=== PATIENT | male | born 1940 | race Caucasian/White ===

== ENCOUNTER 2018-08-01 17:25 | Inpatient (IN) | payer MEDICARE ==
[~2018-08-01] VITALS: Ht 182.9 cm; Wt 98.2 kg
[~2018-08-01 17:25] MED LIST changes: -BROM3DRO OU; -CARV25TA PO; -FLUT1AER IH; -HYDR-3420 PO; -HYDR-4154 PO; -LOSA100T20 PO; -METF500S7 PO; -MONT10TA24 PO; -POTA-79 PO
[2018-08-01 18:00] VITALS: BP 188/93
[2018-08-01] MEDS ORDERED: POTA-79 PO (18:18)
[2018-08-01] MEDS ORDERED: HYDR-3420 PO (18:18)
[2018-08-01] MEDS ORDERED: HYDR-4154 PO (18:18)
[2018-08-01] MEDS ORDERED: FLUT1AER IH (18:18)
[2018-08-01] MEDS ORDERED: LOSA100T20 PO (18:18)
[2018-08-01] MEDS ORDERED: BROM3DRO OU (18:18)
[2018-08-01] MEDS ORDERED: METF500S7 PO (18:18)
[2018-08-01] MEDS ORDERED: MONT10TA24 PO (18:18)
[2018-08-01] MEDS ORDERED: CARV25TA PO (18:18)
[2018-08-01 18:30] LABS: HEMATOCRIT 42.1 % (42-54); MEAN CORPUSCULAR HEMOGLOBIN 27.8 pg (27.0-33.0); MEAN CORPUSCULAR HGB CONC 31.8 g/dL (32.0-36.0); MEAN CORPUSCULAR VOLUME 87.5 fL (79-99); PLATELET COUNT (AUTO) 240 K/uL (130-400); RED BLOOD CELL COUNT(AUTO) 4.82 MIL/uL (4.50-6.20); RED CELL DISTRIBUTION WIDTH 17.5 % (11.0-15.5); WHITE BLOOD COUNT (AUTO) 9.6 K/uL (4.8-10.8)
[2018-08-01 18:45] LABS: BAND NEUTROPHILS % (MANUAL) 4 % (0-2); EOSINOPHILS % (MANUAL) 1 % (1-6); LYMPHOCYTES % (MANUAL) 4 % (22-44); MAN.DIFF COMMENT-IMPRESSION MANUAL DIFFERENTIAL; MONOCYTES % (MANUAL) 3 % (2-9); REACTIVE LYMPHOCYTES 5 % (0-0); SEGMENTED NEUTROPHILS % 83 % (40-70)
[2018-08-01] MEDS ORDERED: LIDOCAINE HCL-MPF 1% 2ML VIAL IVP PRN (18:45)
[2018-08-01] MEDS ORDERED: POTASSIUM CHLORIDE 10% ELIXIR 20 MEQ/15 ML UDCUP PO PRN (18:45)
[2018-08-01] MEDS ORDERED: POTASSIUM CHLORIDE 20MEQ/100ML 100 ML IV PRN (18:45)
[2018-08-01] MEDS ORDERED: ZOLPIDEM TARTRATE 5 MG TAB PO PRN (18:45)
[2018-08-01] MEDS ORDERED: MAGNESIUM HYDROXIDE 30 ML/UDCUP PO PRN (18:45)
[2018-08-01] MEDS ORDERED: ACETAMINOPHEN 325 MG TAB PO PRN (18:45)
[2018-08-01 18:49] LABS: ABG BASE EXCESS 5.3 mmol/L (-2.0-3.0); ABG HCO3 29.5 mmol/L (21.0-28.0); ABG OXYGEN SATURATION 93.7 % (95.0-99.0); ABG PCO2 42 mmHg (35-48)
[2018-08-01 18:58] LABS: B-TYPE NATRIURETIC PEPTIDE 412 pg/mL (0-100)
[2018-08-01 19:02] LABS: CARBON DIOXIDE 31 mmol/L (21-32); CHLORIDE 108 mmol/L (101-111); CREATINE KINASE, TOTAL 106 U/L (21-232); CREATININE 1.9 mg/dL (0.5-1.5); GLOMERULAR FILTR. RATE CALC 37 mL/min (>60); GLUCOSE,RANDOM 101 mg/dL (70-105); MYOGLOBIN 203 ng/mL (10-92); POTASSIUM 4.3 mmol/L (3.5-5.1); SODIUM SERUM 144 mmol/L (136-145); TROPONIN I < 0.04 ng/mL (0.00-0.06); UREA NITROGEN, BLOOD 24 mg/dL (7-18)
[2018-08-01 19:14] VITALS: BP 183/89
[2018-08-01] MEDS: INSULIN HUMULIN R 100 UNIT/ML 3ML SQ SCH (21:00)
[2018-08-01] MEDS: FUROSEMIDE 10 MG/ML 4ML VIAL IV SCH (21:02)
[2018-08-01 21:38] LABS: BILIRUBIN,URINE Negative (NEGATIVE); COLOR,URINE Yellow (YELLOW); GLUCOSE, URINE (UA) Negative (NEGATIVE); KETONES,URINE Negative (NEGATIVE); LEUKOCYTE ESTERASE ,URINE Negative (NEGATIVE); NITRATE,URINE Negative (NEGATIVE); OCCULT BLOOD,URINE Negative (NEGATIVE); PROTEIN,URINE 300 (NEGATIVE)
[2018-08-01 21:41] LABS: APPEARANCE,URINE CLEAR (CLEAR)
[2018-08-01 21:44] LABS: BACTERIA,URINE Rare /HPF (None Seen); RBC,URINE 0-1 /HPF (0-1); SQUAMOUS EPITHELIAL CELL,UR Rare /HPF (0-2); WBC,URINE 0-1 /HPF (0-1)
[2018-08-01 23:00] VITALS: BP 154/64
[2018-08-01] MEDS: IPRATROPIUM 0.5 MG/2.5 ML INH IH SCH (23:49)
[2018-08-02 01:08] LABS: CREATINE KINASE, TOTAL 99 U/L (21-232); MYOGLOBIN 205 ng/mL (10-92); TROPONIN I < 0.04 ng/mL (0.00-0.06)
[2018-08-02 03:00] VITALS: BP 136/64
[2018-08-02] MEDS: FUROSEMIDE 10 MG/ML 4ML VIAL IV SCH ×3 (05:15→20:58)
[2018-08-02] MEDS: INSULIN HUMULIN R 100 UNIT/ML 3ML SQ SCH ×4 (06:06→20:56)
[2018-08-02] MEDS: IPRATROPIUM 0.5 MG/2.5 ML INH IH SCH ×3 (06:15→18:33)
[2018-08-02 06:25] LABS: CREATINE KINASE, TOTAL 70 U/L (21-232); MYOGLOBIN 211 ng/mL (10-92); TROPONIN I < 0.04 ng/mL (0.00-0.06)
[2018-08-02 07:00] VITALS: BP 165/88
[2018-08-02] MEDS: PANTOPRAZOLE SODIUM 40 MG TABLET.DR PO SCH (07:50)
[2018-08-02] MEDS: ENOXAPARIN SODIUM 40 MG/0.4 ML SYRINGE SQ SCH (07:51)
[2018-08-02 11:00] VITALS: BP 173/93
[2018-08-02] MEDS ORDERED: CLONIDINE HCL 0.1 MG TABLET PO PRN (12:30)
[2018-08-02] MEDS ORDERED: CYCLOBENZAPRINE HCL 10 MG TABLET PO PRN (12:30)
[2018-08-02] MEDS: HYDRALAZINE HCL 25 MG TABLET PO SCH ×3 (13:07→20:57)
[2018-08-02 16:00] VITALS: BP 164/88
[2018-08-02] MEDS: ALBUTEROL SULFATE 0.083% 2.5 MG/3 ML INH IH SCH (18:32)
[2018-08-02] MEDS: BUDESONIDE 0.5 MG/2 ML INH IH SCH (19:29)
[2018-08-02 19:36] VITALS: BP 171/73
[2018-08-02] MEDS: AMLODIPINE BESYLATE 5 MG TAB PO SCH (20:56)
[2018-08-02] MEDS: SIMVASTATIN 20 MG TABLET PO SCH (20:57)
[2018-08-02] MEDS: CARVEDILOL 25 MG TABLET PO SCH (20:57)
[2018-08-02] MEDS: TAMSULOSIN HCL 0.4 MG CAP.ER.24H PO SCH (20:57)
[2018-08-02] MEDS: HYDROCHLOROTHIAZIDE 25 MG TABLET PO SCH (20:57)
[2018-08-02 23:24] VITALS: BP 139/63
[2018-08-03] MEDS: ALBUTEROL SULFATE 0.083% 2.5 MG/3 ML INH IH SCH ×5 (00:26→23:56)
[2018-08-03] MEDS: IPRATROPIUM 0.5 MG/2.5 ML INH IH SCH ×5 (00:26→23:56)
[2018-08-03 03:35] VITALS: BP 143/65
[2018-08-03 04:17] LABS: CREATININE 2.1 mg/dL (0.5-1.5); POTASSIUM 3.6 mmol/L (3.5-5.1)
[2018-08-03] MEDS: FUROSEMIDE 10 MG/ML 4ML VIAL IV SCH ×3 (05:26→21:16)
[2018-08-03] MEDS: PANTOPRAZOLE SODIUM 40 MG TABLET.DR PO SCH (05:34)
[2018-08-03] MEDS: BUDESONIDE 0.5 MG/2 ML INH IH SCH ×2 (06:03→18:51)
[2018-08-03] MEDS: INSULIN HUMULIN R 100 UNIT/ML 3ML SQ SCH ×4 (06:38→21:00)
[2018-08-03 07:00] VITALS: BP 148/92
[2018-08-03] MEDS ORDERED: FOLIC ACID 1 MG TABLET PO SCH (09:00)
[2018-08-03] MEDS: HYDROCHLOROTHIAZIDE 25 MG TABLET PO SCH ×2 (09:05→21:16)
[2018-08-03] MEDS: CARVEDILOL 25 MG TABLET PO SCH ×2 (09:05→21:15)
[2018-08-03] MEDS: LOSARTAN 100 MG TABLET PO SCH (09:05)
[2018-08-03] MEDS: HYDRALAZINE HCL 25 MG TABLET PO SCH ×3 (09:06→21:14)
[2018-08-03] MEDS: POTASSIUM CHLORIDE 20 MEQ ERTAB PO SCH (09:06)
[2018-08-03] MEDS: MONTELUKAST SODIUM 10 MG TAB PO SCH (09:06)
[2018-08-03] MEDS: FINASTERIDE 5 MG TABLET PO SCH (09:06)
[2018-08-03] MEDS: ENOXAPARIN SODIUM 40 MG/0.4 ML SYRINGE SQ SCH (09:09)
[2018-08-03 11:00] VITALS: BP 161/75
[2018-08-03 13:56] LABS: ALBUMIN 3.2 g/dL (3.5-5.0); CREATININE 2.2 mg/dL (0.5-1.5); POTASSIUM 3.4 mmol/L (3.5-5.1); TOTAL PROTEIN, SERUM 6.2 g/dL (6.0-8.3)
[2018-08-03 16:00] VITALS: BP 155/81
[2018-08-03 19:24] VITALS: BP 157/78
[2018-08-03] MEDS: SIMVASTATIN 20 MG TABLET PO SCH (21:14)
[2018-08-03] MEDS: TAMSULOSIN HCL 0.4 MG CAP.ER.24H PO SCH (21:14)
[2018-08-03] MEDS: AMLODIPINE BESYLATE 5 MG TAB PO SCH (21:16)
[2018-08-03 23:26] VITALS: BP 146/82
[2018-08-04 03:58] VITALS: BP 154/65
[2018-08-04 04:40] LABS: HEMATOCRIT 45.3 % (42-54); MEAN CORPUSCULAR HEMOGLOBIN 27.4 pg (27.0-33.0); MEAN CORPUSCULAR HGB CONC 31.4 g/dL (32.0-36.0); MEAN CORPUSCULAR VOLUME 87.1 fL (79-99); PLATELET COUNT (AUTO) 188 K/uL (130-400); RED BLOOD CELL COUNT(AUTO) 5.21 MIL/uL (4.50-6.20); RED CELL DISTRIBUTION WIDTH 17.2 % (11.0-15.5); WHITE BLOOD COUNT (AUTO) 8.4 K/uL (4.8-10.8)
[2018-08-04 05:05] LABS: CREATININE 2.2 mg/dL (0.5-1.5); PHOSPHORUS 4.3 mg/dL (2.5-4.9); POTASSIUM 3.2 mmol/L (3.5-5.1); THYROID STIMULATING HORMONE 1.34 uIU/mL (0.36-3.74); URIC ACID 10.4 mg/dL (2.6-7.2)
[2018-08-04] MEDS: FUROSEMIDE 10 MG/ML 4ML VIAL IV SCH ×3 (05:30→21:31)
[2018-08-04] MEDS: INSULIN HUMULIN R 100 UNIT/ML 3ML SQ SCH ×4 (05:48→21:00)
[2018-08-04] MEDS: IPRATROPIUM 0.5 MG/2.5 ML INH IH SCH ×3 (06:09→18:18)
[2018-08-04] MEDS: ALBUTEROL SULFATE 0.083% 2.5 MG/3 ML INH IH SCH ×3 (06:09→18:18)
[2018-08-04] MEDS: BUDESONIDE 0.5 MG/2 ML INH IH SCH ×2 (06:09→18:41)
[2018-08-04] MEDS: PANTOPRAZOLE SODIUM 40 MG TABLET.DR PO SCH (06:39)
[2018-08-04 07:00] VITALS: BP 137/73
[2018-08-04 08:11] LABS: HEPATITIS Bs ANTIGEN SCREEN P Negative (Negative)
[2018-08-04] MEDS: FINASTERIDE 5 MG TABLET PO SCH (09:39)
[2018-08-04] MEDS: POTASSIUM CHLORIDE 20 MEQ ERTAB PO SCH (09:39)
[2018-08-04] MEDS: CARVEDILOL 25 MG TABLET PO SCH ×2 (09:39→21:30)
[2018-08-04] MEDS: HYDROCHLOROTHIAZIDE 25 MG TABLET PO SCH (09:39)
[2018-08-04] MEDS: FOLIC ACID/VITAMIN B COMP W-C 1 MG CAPSULE PO SCH (09:39)
[2018-08-04] MEDS: LOSARTAN 100 MG TABLET PO SCH (09:39)
[2018-08-04] MEDS: MONTELUKAST SODIUM 10 MG TAB PO SCH (09:39)
[2018-08-04] MEDS: HYDRALAZINE HCL 25 MG TABLET PO SCH ×4 (09:40→21:30)
[2018-08-04] MEDS: ENOXAPARIN SODIUM 40 MG/0.4 ML SYRINGE SQ SCH (09:40)
[2018-08-04 11:00] VITALS: BP 146/76
[2018-08-04 16:00] VITALS: BP 142/74
[2018-08-04 19:33] VITALS: BP_SYST 108; BP_SYST 153; BP_DIAS 74; BP_DIAS 75
[2018-08-04] MEDS: SIMVASTATIN 20 MG TABLET PO SCH (21:30)
[2018-08-04] MEDS: DOXYCYCLINE HYCLATE 100 MG TABLET PO SCH (21:30)
[2018-08-04] MEDS: TAMSULOSIN HCL 0.4 MG CAP.ER.24H PO SCH (21:30)
[2018-08-04] MEDS: AMLODIPINE BESYLATE 5 MG TAB PO SCH (21:30)
[2018-08-04 23:33] VITALS: BP 115/56
[2018-08-05] MEDS: IPRATROPIUM 0.5 MG/2.5 ML INH IH SCH ×5 (00:22→23:57)
[2018-08-05] MEDS: ALBUTEROL SULFATE 0.083% 2.5 MG/3 ML INH IH SCH ×5 (00:23→23:57)
[2018-08-05 03:44] VITALS: BP 131/54
[2018-08-05] MEDS: FUROSEMIDE 10 MG/ML 4ML VIAL IV SCH ×3 (04:22→12:45)
[2018-08-05 04:26] LABS: HEMATOCRIT 44.5 % (42-54); MEAN CORPUSCULAR HEMOGLOBIN 28.1 pg (27.0-33.0); MEAN CORPUSCULAR HGB CONC 32.4 g/dL (32.0-36.0); MEAN CORPUSCULAR VOLUME 86.8 fL (79-99); NUCLEATED RED BLOOD CELLS 0.1 % (0.0-0.19); PLATELET COUNT (AUTO) 207 K/uL (130-400); RED BLOOD CELL COUNT(AUTO) 5.12 MIL/uL (4.50-6.20); RED CELL DISTRIBUTION WIDTH 17.1 % (11.0-15.5); WHITE BLOOD COUNT (AUTO) 10.2 K/uL (4.8-10.8)
[2018-08-05 04:35] LABS: CREATININE 2.4 mg/dL (0.5-1.5)
[2018-08-05] MEDS: BUDESONIDE 0.5 MG/2 ML INH IH SCH ×2 (05:54→19:24)
[2018-08-05] MEDS: INSULIN HUMULIN R 100 UNIT/ML 3ML SQ SCH ×4 (06:01→21:00)
[2018-08-05 06:02] LABS: COLLECTION PERIOD,URINE 24 HR; TOTAL VOLUME 24HRS,URINE 4000 mL
[2018-08-05 06:03] LABS: TPROTEIN TIMED,URINE 74 mg/dL; TPROTEIN U,24HR CALC 2960 mg/24HR (0-165)
[2018-08-05 06:04] LABS: CREATININE,SERUM FOR CRCL 2.4 mg/dL (0.6-1.3)
[2018-08-05] MEDS: PANTOPRAZOLE SODIUM 40 MG TABLET.DR PO SCH (06:06)
[2018-08-05 07:35] VITALS: BP 128/70
[2018-08-05] MEDS: FINASTERIDE 5 MG TABLET PO SCH (08:02)
[2018-08-05] MEDS: DOXYCYCLINE HYCLATE 100 MG TABLET PO SCH ×2 (08:03→20:52)
[2018-08-05] MEDS: FOLIC ACID/VITAMIN B COMP W-C 1 MG CAPSULE PO SCH (08:03)
[2018-08-05] MEDS: LOSARTAN 100 MG TABLET PO SCH (08:03)
[2018-08-05] MEDS: MONTELUKAST SODIUM 10 MG TAB PO SCH (08:03)
[2018-08-05] MEDS: POTASSIUM CHLORIDE 20 MEQ ERTAB PO PRN ×2 (08:03→12:44)
[2018-08-05] MEDS: HYDRALAZINE HCL 25 MG TABLET PO SCH ×4 (08:03→20:54)
[2018-08-05] MEDS: CARVEDILOL 25 MG TABLET PO SCH ×2 (08:03→20:53)
[2018-08-05] MEDS: POTASSIUM CHLORIDE 20 MEQ ERTAB PO SCH (08:04)
[2018-08-05] MEDS: ENOXAPARIN SODIUM 30 MG/0.3 ML SQ SCH (08:04)
[2018-08-05 11:36] VITALS: BP 140/80
[2018-08-05 16:03] VITALS: BP 129/80
[2018-08-05] MEDS: FUROSEMIDE 40 MG TABLET PO SCH (16:44)
[2018-08-05 19:59] VITALS: BP 144/74
[2018-08-05] MEDS: TAMSULOSIN HCL 0.4 MG CAP.ER.24H PO SCH (20:51)
[2018-08-05] MEDS: SIMVASTATIN 20 MG TABLET PO SCH (20:51)
[2018-08-05] MEDS: AMLODIPINE BESYLATE 5 MG TAB PO SCH (20:51)
[2018-08-06 00:18] VITALS: BP 113/59
[2018-08-06 03:28] VITALS: BP 140/66
[2018-08-06 04:37] LABS: HEMATOCRIT 42.1 % (42-54); MEAN CORPUSCULAR HEMOGLOBIN 27.7 pg (27.0-33.0); MEAN CORPUSCULAR HGB CONC 31.9 g/dL (32.0-36.0); MEAN CORPUSCULAR VOLUME 86.6 fL (79-99); NUCLEATED RED BLOOD CELLS 0.1 % (0.0-0.19); PLATELET COUNT (AUTO) 186 K/uL (130-400); RED BLOOD CELL COUNT(AUTO) 4.86 MIL/uL (4.50-6.20)
[2018-08-06 05:01] LABS: CREATININE 2.8 mg/dL (0.5-1.5); POTASSIUM 3.1 mmol/L (3.5-5.1)
[2018-08-06] MEDS: PANTOPRAZOLE SODIUM 40 MG TABLET.DR PO SCH (06:38)
[2018-08-06] MEDS: IPRATROPIUM 0.5 MG/2.5 ML INH IH SCH ×2 (06:38→11:17)
[2018-08-06] MEDS: ALBUTEROL SULFATE 0.083% 2.5 MG/3 ML INH IH SCH ×2 (06:38→11:17)
[2018-08-06] MEDS: POTASSIUM CHLORIDE 20 MEQ ERTAB PO PRN (06:38)
[2018-08-06] MEDS: BUDESONIDE 0.5 MG/2 ML INH IH SCH (06:48)
[2018-08-06] MEDS: INSULIN HUMULIN R 100 UNIT/ML 3ML SQ SCH ×2 (07:30→11:30)
[2018-08-06 07:45] VITALS: BP 148/71
[2018-08-06] MEDS: HYDRALAZINE HCL 25 MG TABLET PO SCH ×2 (09:00→12:46)
[2018-08-06] MEDS: LOSARTAN 100 MG TABLET PO SCH (09:00)
[2018-08-06] MEDS: FOLIC ACID/VITAMIN B COMP W-C 1 MG CAPSULE PO SCH (09:09)
[2018-08-06] MEDS: MONTELUKAST SODIUM 10 MG TAB PO SCH (09:09)
[2018-08-06] MEDS: FINASTERIDE 5 MG TABLET PO SCH (09:09)
[2018-08-06] MEDS: FUROSEMIDE 40 MG TABLET PO SCH (09:09)
[2018-08-06] MEDS: POTASSIUM CHLORIDE 20 MEQ ERTAB PO SCH (09:09)
[2018-08-06] MEDS: DOXYCYCLINE HYCLATE 100 MG TABLET PO SCH (09:09)
[2018-08-06] MEDS: ENOXAPARIN SODIUM 30 MG/0.3 ML SQ SCH (09:10)
[2018-08-06] MEDS: CARVEDILOL 25 MG TABLET PO SCH (09:10)
[2018-08-06 11:39] VITALS: BP 129/71
== END 2018-08-06 14:25 | disposition home or self-care (01) | DRG 291 ==
LOC: EDH 17:25 → EDHIP 17:26 → 2AH 17:53
PROVIDERS: ADMIT Internal Medicine Critical Care Medicine; ATTEND Internal Medicine Critical Care Medicine
PROC: 3E0234Z Introduction of Serum, Toxoid and Vaccine into Muscle, Percutaneous Approach (ICD-10-PCS; principal; 2018-08-02)
DX: I13.0 Hypertensive heart and chronic kidney disease with heart failure and stage 1 through stage 4 chronic kidney disease, or unspecified chronic kidney disease (principal); J96.01 Acute respiratory failure with hypoxia; I50.43 Acute on chronic combined systolic (congestive) and diastolic (congestive) heart failure; N17.9 Acute kidney failure, unspecified; L03.90 Cellulitis, unspecified; N04.9 Nephrotic syndrome with unspecified morphologic changes; I42.9 Cardiomyopathy, unspecified; N40.0 Benign prostatic hyperplasia without lower urinary tract symptoms; E78.5 Hyperlipidemia, unspecified; M19.90 Unspecified osteoarthritis, unspecified site; D64.9 Anemia, unspecified; H91.90 Unspecified hearing loss, unspecified ear; I25.10 Atherosclerotic heart disease of native coronary artery without angina pectoris; E11.22 Type 2 diabetes mellitus with diabetic chronic kidney disease; J44.9 Chronic obstructive pulmonary disease, unspecified; I34.0 Nonrheumatic mitral (valve) insufficiency; N18.9 Chronic kidney disease, unspecified; Z96.653 Presence of artificial knee joint, bilateral; Z87.442 Personal history of urinary calculi; Z87.891 Personal history of nicotine dependence; Z95.1 Presence of aortocoronary bypass graft; Z23 Encounter for immunization
CPT/HCPCS: 36415; 36600; 71045; 71250; 76770; 80048; 80053; 81001; 82550; 82553; 82575; 82803; 82948; 83874; 83880; 84100; 84156; 84166; 84443; 84484; 84550; 85025; 85027; 86038; 86160; 86215; 86235; 86255; 86325; 86334; 87340; 87520; 93005; 93306; 93970; 94640; 94664; J1650; J1940; Q2038

== ENCOUNTER → 2018-08-01 | Outpatient (CLI) | payer MEDICARE ==
[~2018-08-01] MED LIST: AMLO5TAB7 PO; ASCO-157 PO; BENA20TA10 PO; BETA2500 PO; BROM3DRO OU; CARV12.511 PO; CARV25TA PO; CHLO25TA3 PO; CHOL100018 PO; CLON0.1T PO; CYCL10TA7 PO; FINA5TAB41 PO; FLUT1AER IH; FOLI1TAB15 PO; GINK120C PO; GLUC-172 PO; HYDR-3420 PO; HYDR-4154 PO; HYDR25TA PO; LOSA100T20 PO; METF-444 PO; METF500S7 PO; MONT10TA24 PO; NAPR220T57 PO; POTA-79 PO; POTA20TA82 PO; SIMV20TA6 PO; TAMS0.4C32 PO; VITA100051 PO; [UNRECOGNIZED DRUG - OTHER] PO; [UNRECOGNIZED DRUG - OTHER] PO; [UNRECOGNIZED DRUG - OTHER] PO; super b complex PO; ventolin PO
== END | disposition home or self-care (01) ==
LOC: SHCH 10:29
PROVIDERS: ATTEND Internal Medicine Cardiovascular Disease
DX: R60.9 Edema, unspecified (principal)
CPT/HCPCS: 93970

== ENCOUNTER → 2019-04-24 | Outpatient (CLI) | payer MEDICARE ==
[~2019-04-24] MED LIST changes: -AMLO5TAB7 PO; +AMLO5TAB9 PO; +BROM3DRO OU; +CARV25TA PO; +FLUT1AER IH; +HYDR-3420 PO; +HYDR-4154 PO; +LOSA100T58 PO; +METF500S7 PO; +MONT10TA24 PO; +POTA-79 PO
== END | disposition home or self-care (01) ==
LOC: SHCH 12:58
PROVIDERS: ATTEND Internal Medicine Cardiovascular Disease
DX: I11.9 Hypertensive heart disease without heart failure (principal); R60.9 Edema, unspecified
CPT/HCPCS: 93306; 93970

== ENCOUNTER 2019-07-16 11:35 | Emergency (ER) | payer MEDICARE ==
[2019-07-16 12:43] LABS: BASOPHILS % (AUTO) 0.8 % (0.0-5.0); EOSINOPHILS % (AUTO) 2.2 % (0.0-8.0); HEMATOCRIT 34.4 % (42-54); LYMPHOCYTES % (AUTO) 8.7 % (21.0-51.0); MEAN CORPUSCULAR HEMOGLOBIN 28.7 pg (27.0-33.0); MEAN CORPUSCULAR HGB CONC 31.8 g/dL (32.0-36.0); MEAN CORPUSCULAR VOLUME 90.3 fL (79-99); MONOCYTES % (AUTO) 4.4 % (3.0-13.0); NEUTROPHILS % (AUTO) 83.9 % (40.0-77.0); NUCLEATED RED BLOOD CELLS 0.1 % (0.0-0.19); PLATELET COUNT (AUTO) 246 K/uL (130-400); RED BLOOD CELL COUNT(AUTO) 3.81 MIL/uL (4.50-6.20); RED CELL DISTRIBUTION WIDTH 17.9 % (11.0-15.5); WHITE BLOOD COUNT (AUTO) 6.3 K/uL (4.8-10.8)
[2019-07-16 13:08] LABS: CREATININE 2.3 mg/dL (0.5-1.5)
[2019-07-16 14:03] LABS: ERYTHROCYTE SEDIMENTATION RATE 28 MM/HR (0-20)
[2019-07-16] MEDS ORDERED: METHYLPREDNISOLONE SOD SUCC 40MG/ML 1ML ONE (17:53)
[2019-07-16] MEDS ORDERED: HYDROCODONE/ACETAMINOPHEN 10/325 MG TAB ONE (17:54)
== END 2019-07-16 18:19 | disposition home or self-care (01) ==
LOC: EDH 11:35
DX: M54.16 Radiculopathy, lumbar region (principal); M51.36 Other intervertebral disc degeneration, lumbar region; I12.9 Hypertensive chronic kidney disease with stage 1 through stage 4 chronic kidney disease, or unspecified chronic kidney disease; N18.9 Chronic kidney disease, unspecified; E11.9 Type 2 diabetes mellitus without complications; E78.5 Hyperlipidemia, unspecified; J44.9 Chronic obstructive pulmonary disease, unspecified; Z98.890 Other specified postprocedural states; Z87.891 Personal history of nicotine dependence
CPT/HCPCS: 36415; 72131; 72170; 73552; 80048; 85025; 85651; 96374; 99285; J2920

== ENCOUNTER → 2020-02-02 | Outpatient (CLI) | payer MEDICARE ==
[~2020-02-02] MED LIST changes: -BETA2500 PO; -MONT10TA24 PO; +MONT10TA26 PO; +SIMV-43 PO; -SIMV20TA6 PO; +[UNRECOGNIZED DRUG - CODE] PO
== END | disposition home or self-care (01) ==
LOC: SHCH 14:48
PROVIDERS: ATTEND Internal Medicine Cardiovascular Disease
DX: I82.811 Embolism and thrombosis of superficial veins of right lower extremity (principal); Z09 Encounter for follow-up examination after completed treatment for conditions other than malignant neoplasm
CPT/HCPCS: 93971

== ENCOUNTER → 2020-02-09 | Outpatient (CLI) | payer MEDICARE | END | disposition home or self-care (01) | LOC: SHCH 10:31 | PROVIDERS: ATTEND Internal Medicine Cardiovascular Disease | DX: I87.2 Venous insufficiency (chronic) (peripheral) (principal); Z09 Encounter for follow-up examination after completed treatment for conditions other than malignant neoplasm | CPT/HCPCS: 93971 ==

== ENCOUNTER 2020-05-17 23:40 | Emergency (ER) | payer MEDICARE, OTHER ==
[2020-05-18] MEDS ORDERED: CEFTRIAXONE SODIUM 1 GM ONE
[2020-05-18] MEDS ORDERED: CLINDAMYCIN HCL 150 MG CAP ONE
[2020-05-18] MEDS ORDERED: LIDOCAINE HCL-MPF 1% 2ML VIAL ONE (00:01)
== END 2020-05-18 00:53 | disposition home or self-care (01) ==
LOC: EDH 23:40
DX: L03.113 Cellulitis of right upper limb (principal); J44.9 Chronic obstructive pulmonary disease, unspecified; E11.9 Type 2 diabetes mellitus without complications; E78.5 Hyperlipidemia, unspecified; I10 Essential (primary) hypertension; Z87.891 Personal history of nicotine dependence
CPT/HCPCS: 73130; 96372; 99283; J0696; J3490